=== PATIENT | female | born 1965 | race Caucasian/White ===

== ENCOUNTER → 2017-01-17 | Outpatient (CLI) | payer OTHER ==
--- NOTE | 2017-01-17 12:41 | Diagnostic Imaging Report ---
PROCEDURE: CT urinary tract, rule out kidney stone. TECHNIQUE: Multiple contiguous axial images were obtained through the abdomen and pelvis without the use of intravenous contrast. INDICATION: Right flank pain. FINDINGS: There is minimal atelectasis in the lung bases. There is diffuse fatty infiltration in the liver. Cholecystectomy clips are seen. The pancreas, the spleen, and the adrenals appear unremarkable. The kidneys demonstrate bilateral nonobstructive stones up to 1.1 cm on the right side and up to 1.6 cm on the left. There is no hydronephrosis. There is however a proximal left ureteric stone measuring 4 mm at L4 level. No right ureteric or bladder stones. The appendix is normal. The abdominal aorta is normal in caliber. No para-aortic significantly enlarged lymph node is seen. The uterus and adnexa appear grossly unremarkable. There is a small fat-containing umbilical hernia and diastasis of the recti with abdominal wall laxity seen. The osseous structures appear grossly unremarkable. IMPRESSION: 1. Multiple bilateral renal stones without hydronephrosis. 2. A 4-mm proximal left ureteric stone at L4 level is seen without obstruction. 3. Diverticulosis, no diverticulitis. 4. Hepatic steatosis. 5. Diastasis of the recti and small fat-containing umbilical hernia. Dictated by: Dictated on workstation # [id number]
== END ==
LOC: RAD 11:43
PROVIDERS: ATTEND Nurse Practitioner Adult Health
DX: N20.2 Calculus of kidney with calculus of ureter (principal); K57.30 Diverticulosis of large intestine without perforation or abscess without bleeding; K76.0 Fatty (change of) liver, not elsewhere classified; K42.9 Umbilical hernia without obstruction or gangrene; Q79.59 Other congenital malformations of abdominal wall
CPT/HCPCS: 74176

== ENCOUNTER → 2018-04-06 | Outpatient (CLI) | payer OTHER ==
--- NOTE | 2018-04-06 15:01 | Diagnostic Imaging Report ---
PROCEDURE: CT abdomen and pelvis without contrast. TECHNIQUE: Multiple contiguous axial images were obtained through the abdomen and pelvis without the use of intravenous contrast. INDICATION: History of kidney stones. COMPARISON: 01/17/2017. FINDINGS: Included portions of the lung bases are clear. CT abdomen: Large 1.7 x 1.1 cm calculus is identified within the left renal pelvis. There is mild prominence of the left renal pelvis. Multiple additional nonobstructive left renal calyceal calculi are also noted. Additionally, there is a faint 3-4 mm calculus within the left mid ureter (image 51, series 2). This is in essentially stable position when compared to 01/17/2017. On the right, there is a 1.2 x 0.9 cm calculus within the renal pelvis. Smaller nonobstructive right calyceal calculi are also noted. Note is also made of mild prominence of the right renal pelvis. No calculi are seen along the course of the right ureter. Urinary bladder is unopacified. No calculi are seen within the urinary bladder. No renal mass-type lesions are identified on this noncontrast exam. Liver demonstrates geographic areas of decreased attenuation consistent with hepatic steatosis. Otherwise, the liver, adrenal glands, spleen, and pancreas have an unremarkable noncontrast CT appearance. Small bowel loops are nondistended. There are a few scattered colonic diverticula. There is no CT evidence of acute diverticulitis. Normal appendix is identified. There is no loculated fluid collection, free fluid, or free air within the abdomen. No abnormal mesenteric or retroperitoneal adenopathy is seen. Bony structures show no acute abnormalities. CT pelvis: Again, no calculi are seen within the urinary bladder. There is no loculated fluid collection, free fluid, or free air within the pelvis. No abnormal lymph nodes are identified. Bony structures show no acute abnormalities. IMPRESSION: 1. Multiple bilateral pelvic and calyceal renal calculi as described above. 2. Stable left mid ureteral calculus. 3. Hepatic steatosis. 4. Colonic diverticulosis, but no CT evidence of acute diverticulitis. Dictated by: Dictated on workstation # [id number]
== END ==
LOC: RAD 12:46
PROVIDERS: ATTEND Nurse Practitioner Primary Care
DX: N20.2 Calculus of kidney with calculus of ureter (principal); K76.0 Fatty (change of) liver, not elsewhere classified; K57.30 Diverticulosis of large intestine without perforation or abscess without bleeding; I87.2 Venous insufficiency (chronic) (peripheral)
CPT/HCPCS: 74176